=== PATIENT | female | born 1965 | race Caucasian/White ===

== ENCOUNTER → 2020-08-31 | Outpatient (CLI) | payer OTHER ==
[~2020-08-31] MED LIST: IBUPROFEN600 MG PO
== END ==
LOC: HEART 5 11:29
DX: R07.9 Chest pain, unspecified (principal); R93.1 Abnormal findings on diagnostic imaging of heart and coronary circulation
CPT/HCPCS: 93306

== ENCOUNTER → 2020-10-24 | Outpatient (CLI) | payer OTHER | LOC: HEART 5 08:10 | DX: R07.9 Chest pain, unspecified (principal); R00.2 Palpitations; R94.39 Abnormal result of other cardiovascular function study | CPT/HCPCS: 78452; A9502; J2785 ==

== ENCOUNTER 2022-04-06 01:04 | Emergency (ER) | payer OTHER ==
[2022-04-06 02:20] LABS: HEMOGLOBIN 13.1 gm/dl (12.3-15.3); RED BLOOD COUNT 4.34 M/UL (4.00-5.10); WHITE BLOOD COUNT 12.7 K/UL (4.5-11.0)
[2022-04-06 02:56] LABS: BUN/CREATININE RATIO 10 (0-10)
== END 2022-04-06 06:15 | disposition home or self-care (01) ==
LOC: ER1 01:04
PROVIDERS: Physician Assistant
DX: I69.391 Dysphagia following cerebral infarction (principal); R13.10 Dysphagia, unspecified; R06.02 Shortness of breath; R09.89 Other specified symptoms and signs involving the circulatory and respiratory systems; F17.210 Nicotine dependence, cigarettes, uncomplicated; Z20.822 Contact with and (suspected) exposure to COVID-19
CPT/HCPCS: 0240U; 71045; 80053; 82550; 82553; 84484; 85025; 99284